=== PATIENT | male | born 1990 | race Caucasian/White ===

== ENCOUNTER 2025-03-25 14:51 | Emergency (ER) | payer SELFPAY ==
--- OUTSIDE RECORDS SUMMARY | 2025-03-25 15:03 | XMS_ITS | Clinical Summary ---
Author Organization [facility] Address [address] [place] [address] Care Team Providers Care Extrusion Operator Name Role Phone Iraj Chahal MD Primary Care Provider [phone] Social History Tobacco Use Types Packs/Day Years Used Date Smoking Tobacco: Never Assessed Sex and Gender Information Value Date Recorded Sex Assigned at Not on file Legal Sex Male 6:55 PM EDT Gender Identity Not on file Sexual Orientation Not on file Plan of Treatment Not on file Care Teams Extrusion Operator Relationship Specialty Start Date End Date Iraj Chahal MD [address] [place] [id number] PCP - General Family Medicine 11/12/22
[2025-03-25 15:07] VITALS: BP 135/83; PULSE 85; TEMP 36.8; O2SAT 100; BMI 19.9
--- NOTE | 2025-03-25 15:15 | CT_ITS ---
The [address] [address] Patient Name: SOFÍA MORALES MRN: [id number] date: 1990 Sex: M Assigned Patient Location: ER Current Patient Location: ER Accession/Order Number: [id number] Exam Date: 03/25/2025 15:42 Report Date: 03/25/2025 16:42 At the request of: SUZI PEREZ MD Procedure: CT abdomen pelvis w con CT abdomen pelvis w con 03/25/2025 3:49 PM SIGNS AND SYMPTOMS: Left lower quadrant pain TECHNIQUE: Multidetector ct axial images of the abdomen and pelvis were obtained with IV contrast. Multiplanar reformats were performed and reviewed to further define anatomy and possible pathology. CT was performed with one or more of the following dose reduction techniques: Automated exposure control, adjustment of the mA and/or kV according to patient size, or use of iterative reconstruction technique. COMPARISON: None. FINDINGS: Lower Chest: Within normal limits. ABDOMEN: Liver: Hypoattenuating structures are noted in the right hepatic lobe measuring up to 1.4 cm in greatest dimension. These are nonspecific and may represent cysts or hemangiomas. Bile Ducts: Normal caliber. Gallbladder: No calcified gallstones. Normal caliber wall. Pancreas: Within normal limits. Spleen: Within normal limits. Adrenals: Within normal limits. Kidneys: Within normal limits. Pelvis: Reproductive Organs: No pelvic masses. Ureters: Within normal limits. Bladder: Within normal limits. Bowel: There are uncomplicated colonic diverticula. Mesenteric Lymph Nodes: No enlarged mesenteric lymph nodes. Peritoneum: No ascites or free air, no fluid collection. Vessels: Atherosclerotic changes are noted in the abdominal aorta. Retroperitoneum: Within normal limits. Abdominal Wall: Within normal limits. Bones: Within normal limits. CT/CT abdomen pelvis w con IMPRESSION: No bowel obstruction or obstructive uropathy. Hypoattenuating structures are noted in the right hepatic lobe measuring up to 1.4 cm in greatest dimension. These are nonspecific and may represent cysts or hemangiomas. Impression dictated by: Misael Arteaga M.D. 03/25/2025 4:42 PM Dictation Location: [place] [address] Electronically authenticated by: [id number] Y Date: 03/25/2025 16:42
--- NOTE | 2025-03-25 15:16 | ED.GENADUL1 ---
HPI HPI - General Adult General Chief complaint: Abdominal Pain Stated complaint: abdominal pain Time Seen by Provider: 03/25/25 15:06 Source: patient Mode of arrival: walk-in Limitations: no limitations History of Present Illness HPI narrative: 34-year-old male presents for left inguinal pain. He states this time it started today after lifting some heavy items. He had inguinal hernia surgery a few years ago and he states that he heard if the mesh fails you get $15,000. No specific injury. No vomiting or diarrhea or constipation. Related Data Home Medications ?Medication ?Instructions ?Recorded ?Confirmed citalopram 40 mg tablet 40 mg PO DAILY 03/25/25 03/25/25 olanzapine 7.5 mg tablet 7.5 mg PO DAILY 03/25/25 03/25/25 Allergies Allergy/AdvReac Type Severity Reaction Status Date / Time Penicillins Allergy Severe Hives Verified 03/25/25 15:06 diphenhydramine (From AdvReac Severe Hallucinati Verified 03/25/25 15:06 Benadryl) ng Opioid HPI Opioid Management Most Recent Opioid Data: Last Pain Scale 8 Today, 15:07 Review of Systems ROS Narrative A ten point review of systems is negative except as noted above. PFSH PFSH Social History Little interest or pleasure in doing things: not at all Feeling down, depressed, or hopeless: not at all Exam Narrative Exam Narrative: Nurses note and vital signs reviewed and patient is not hypoxic. General: The patient appears well and in no apparent distress. Patient is resting comfortably on cart. Skin: Warm, dry, no pallor noted. There is no rash noted. Head: Normocephalic, atraumatic Eye: Normal conjunctiva, no drainage Ears, Nose, Mouth, and Throat: oral mucosa is moist. Nares patent. Cardiovascular: Regular Rate and Rhythm Respiratory: Patient is in no distress, no accessory muscle use, lungs are clear to auscultation, no wheezing, rales or rhonchi Back: non-tender GI: The abdomen is soft and nontender nondistended. He has some tenderness in the left inguinal area but there is no mass and the surgical scar is well-healed. Musculoskeletal: The patient has no evidence of calf tenderness, no pitting edema, symmetrical pulses noted bilaterally Neurological: A&O, normal speech Psychiatric: Cooperative Constitutional Vital Signs, click to edit/add: Last Vital Signs Temp 98.2 F 03/25/25 15:07 Pulse 85 03/25/25 15:07 Resp 16 03/25/25 15:07 BP 135/83 03/25/25 15:07 Pulse Ox 100 03/25/25 15:07 O2 Del Method Room Air 03/25/25 15:07 Course Vital Signs Vital signs: Vital Signs Temperature 98.2 F 03/25/25 15:07 Pulse Rate 85 03/25/25 15:07 Respiratory Rate 16 03/25/25 15:07 Blood Pressure 135/83 03/25/25 15:07 Pulse Oximetry 100 03/25/25 15:07 Oxygen Delivery Method Room Air 03/25/25 15:07 Temperature 98.2 F 03/25/25 15:07 Pulse Rate 85 03/25/25 15:07 Respiratory Rate 16 03/25/25 15:07 Blood Pressure 135/83 03/25/25 15:07 Pulse Oximetry 100 03/25/25 15:07 Oxygen Delivery Method Room Air 03/25/25 15:07 Medical Decision Making MDM Narrative Medical decision making narrative: CAT scan shows incidental finding of cyst versus hemangiomas in the liver but no acute findings particularly in the left inguinal area. Follow-up with his surgeon if symptoms persist. Treatment diagnosis and follow-up were discussed with the patient. Differential Diagnosis Differential Diagnosis: Hernia, groin strain Lab Data Lab results reviewed: Yes I reviewed the patient's lab results Labs: Lab Results 03/25/25 03/25/25 Range/Units 15:25 16:32 WBC 8.9 (4.0-11.0) 10^3/uL RBC 5.15 (4.70-6.10) 10^6/uL Hgb 15.5 (14.0-18.0) g/dL Hct 44.1 (42.0-54.0) % MCV 85.6 (80.0-94.0) fL MCH 30.1 (25.9-34.0) pg MCHC 35.1 (29.9-35.2) g/dL RDW 13.0 (11.0-15.0) % Plt Count 298 (150-450) 10^3/uL MPV 10.4 (9.5-13.5) fL Neut % (Auto) 69.6 (43.0-75.0) % Lymph % (Auto) 21.0 (20.5-60.0) % [place] % (Auto) 6.8 (1.7-12.0) % Eos % (Auto) 1.6 (0.9-7.0) % Baso % (Auto) 0.5 (0.2-2.0) % Neut # (Auto) 6.2 (1.4-6.5) 10^3/uL Lymph # (Auto) 1.9 (1.2-3.8) 10^3/uL [place] # (Auto) 0.6 (0.3-0.8) 10^3/uL Eos # (Auto) 0.1 (0.0-0.7) 10^3/uL Baso # (Auto) 0.0 (0.0-0.1) 10^3/uL Abs Immat Gran (auto) 0.04 H (0.00-0.03) 10^3/uL Imm/Tot Granulo (auto) 0.5 (0.0-0.5) % Sodium 141 (136-145) mmol/L Potassium 3.6 (3.5-5.1) mmol/L Chloride 102 (98-107) mmol/L Carbon Dioxide 30.0 (21.0-32.0) mmol/L Anion Gap 12.6 BUN 6.0 L (7.0-18.0) mg/dL Creatinine 0.78 (0.70-1.30) mg/dL Est GFR ( Amer) >60 (>=60 mL/min/1.73m^2) Est GFR (Non-Af Amer) >60 (>=60 mL/min/1.73m^2) BUN/Creatinine Ratio 7.7 Glucose 78 (74-106) mg/dL Calcium 9.1 (8.5-10.1) mg/dL Urine Color Lt yellow (YELLOW) Urine Clarity Clear (CLEAR) Urine pH 6.5 (5.0-9.0) Ur Specific [place] <=1.005 A (1.005-1.025) Urine Protein Negative (NEG/TRACE) mg/dL Urine Glucose (UA) Negative (NEGATIVE) mg/dL Urine Ketones Negative (NEGATIVE) mg/dL Urine Occult Blood Negative (NEGATIVE) Urine Nitrite Negative (NEGATIVE) Urine Bilirubin Negative (NEGATIVE) Urine Urobilinogen 0.2 (0.2-1.0) EU/dL Ur Leukocyte Esterase Negative (NEGATIVE) Urine RBC None seen (0-2) #/HPF Urine WBC None seen (NONE SEEN) #/HPF Ur Squamous Epith Cells Rare (NONE/RARE) #/LPF Urine Crystals None seen (None Seen) #/HPF Urine Bacteria None seen (NONE SEEN) #/HPF Urine Casts None seen (NONE SEEN) #/LPF Urine Mucus None seen (NONE SEEN) Ur Culture Indicated? No Imaging Data CT scan - abdomen: Radiologist's impression: ITS Impressions Abdomen/Pelvis CT 03/25/25 15:15 IMPRESSION: No bowel obstruction or obstructive uropathy. Hypoattenuating structures are noted in the right hepatic lobe measuring up to 1.4 cm in greatest dimension. These are nonspecific and may represent cysts or hemangiomas. Impression dictated by: Misael Arteaga M.D. 03/25/2025 4:42 PM Dictation Location: [place] [address] Electronically authenticated by: [id number] Y Date: 03/25/2025 16:42 Discharge Plan Discharge Chief Complaint: Abdominal Pain Clinical Impression: Groin pain Patient Disposition: Home, Self-Care Time of Disposition Decision: 16:56 Condition: Good Mode of Transportation: Private Vehicle Prescriptions / Home Meds: No Action citalopram 40 mg tablet 40 mg PO DAILY olanzapine 7.5 mg tablet 7.5 mg PO DAILY Print Language: [place] Instructions: Groin Pain (ED) Additional Instructions: Use ice and ibuprofen for pain Referrals: Physician,Non-Staff, MD [Primary Care Provider] - 1 week
[2025-03-25 15:39] LABS: Hematocrit 44.1 % (42.0-54.0); Hemoglobin 15.5 g/dL (14.0-18.0); Immature Granulocytes Abs Auto 0.04 10^3/uL (0.00-0.03); Immature Granulocytes Pct Auto 0.5 % (0.0-0.5); Lymphocytes Absolute Auto 1.9 10^3/uL (1.2-3.8); Mean Corpuscular HGB Conc 35.1 g/dL (29.9-35.2); Mean Corpuscular Hemoglobin 30.1 pg (25.9-34.0); Mean Corpuscular Volume 85.6 fL (80.0-94.0); Platelet Count 298 10^3/uL (150-450); Red Blood Count 5.15 10^6/uL (4.70-6.10); White Blood Count 8.9 10^3/uL (4.0-11.0)
[2025-03-25 15:54] LABS: Anion Gap 12.6; Blood Urea Nitrogen 6.0 mg/dL (7.0-18.0); Calcium 9.1 mg/dL (8.5-10.1); Carbon Dioxide 30.0 mmol/L (21.0-32.0); Chloride 102 mmol/L (98-107); Estimated GFR (African America >60 (>=60 mL/min/1.73m^2); Estimated GFR (Non-African Ame >60 (>=60 mL/min/1.73m^2); Glucose 78 mg/dL (74-106); Potassium 3.6 mmol/L (3.5-5.1); Sodium 141 mmol/L (136-145)
[2025-03-25] MEDS: 0.9 % SODIUM CHLORIDE 1,000 ML 1000 ML IV (16:07)
[2025-03-25 16:39] LABS: Glucose Urine UA NEGATIVE (NEGATIVE)
[2025-03-25 16:46] LABS: Crystals Seen? None Seen #/HPF (None Seen)
[2025-03-25 16:47] LABS: Cast Seen? NONE SEEN #/LPF (NONE SEEN); Urine Culture Indicated NO
[2025-03-25 17:05] VITALS: BP 135/89; PULSE 63; O2SAT 100
== END 2025-03-25 17:07 | disposition home or self-care (01) ==
PROVIDERS: Emergency Provider Emergency Medicine
DX: R10.32 Left lower quadrant pain (principal)
CPT/HCPCS: 36415; 74177; 80048; 81001; 85025; 99284; Q9967